=== PATIENT | female | born 1990 | race Caucasian/White ===

== ENCOUNTER 2018-02-11 01:10 | Day surgery (SDC) | payer OTHER ==
[~2018-02-11 01:10] MED LIST: HYDACE5 PO; IBUP400 PO; PARO30; TRAZ50
[2018-02-11] MEDS ORDERED: ONDA4ODT (14:20)
== END 2018-02-11 16:13 | disposition home or self-care (01) ==
LOC: ATC 01:10
DX: R11.2 Nausea with vomiting, unspecified (principal); Z36.89 Encounter for other specified antenatal screening
CPT/HCPCS: 96360; 96361; J7120

== ENCOUNTER 2018-03-04 07:07 | Day surgery (SDC) | payer OTHER ==
[~2018-03-04 07:07] MED LIST changes: +ONDA4ODT
== END 2018-03-04 22:51 | disposition home or self-care (01) ==
LOC: ATC 07:07
DX: R11.2 Nausea with vomiting, unspecified (principal); Z36.89 Encounter for other specified antenatal screening
CPT/HCPCS: J2405; J7120

== ENCOUNTER 2018-03-06 00:17 | Day surgery (SDC) | payer OTHER | END 2018-03-06 11:10 | disposition home or self-care (01) | LOC: ATC 00:17 | DX: R11.2 Nausea with vomiting, unspecified (principal); Z36.89 Encounter for other specified antenatal screening | CPT/HCPCS: 96361; 96374; J2405; J7120 ==

== ENCOUNTER 2018-07-09 10:27 | Emergency (ER) | payer OTHER ==
[~2018-07-09] VITALS: Ht 165.1 cm; Wt 85.3 kg
[2018-07-09] MEDS ORDERED: Verotin-Gr Cap1 EACH PO (11:17)
[2018-07-09] MEDS ORDERED: RANI150EL PO (11:17)
== END 2018-07-09 12:11 | disposition home or self-care (01) ==
LOC: ER 10:27
DX: R51 Headache (principal)
CPT/HCPCS: 99282

== ENCOUNTER → 2018-07-21 | Outpatient (CLI) | payer OTHER ==
[~2018-07-21] MED LIST changes: +RANI150EL PO; +Verotin-Gr Cap1 EACH PO
== END | disposition home or self-care (01) ==
LOC: LAB SHORT 17:11 → LAB 17:11
PROVIDERS: Nurse Practitioner Obstetrics & Gynecology
DX: O60.03 Preterm labor without delivery, third trimester (principal)
CPT/HCPCS: 82731

== ENCOUNTER 2018-09-08 05:21 | Inpatient (IN) | payer OTHER ==
[~2018-09-08] VITALS: Ht 165.1 cm; Wt 90.7 kg
[2018-09-08 05:41] LABS: BASOPHILS ABSOLUTE AUTO 0.07 K/mm3 (0.00-0.23); BASOPHILS PERCENT AUTO 1 % (0-2); EOSINOPHILS ABSOLUTE AUTO 0.09 K/mm3 (0.00-0.68); EOSINOPHILS PERCENT AUTO 1 % (0-6); Hematocrit 37.1 % (33.0-51.0); Hemoglobin 12.7 g/dL (11.5-16.0); IMMATURE GRAN ABSOLUTE AUTO 0.12 K/mm3 (0.00-0.10); IMMATURE GRAN PERCENT AUTO 1 % (0-1); LYMPHOCYTES ABSOLUTE AUTO 2.19 K/mm3 (0.84-5.20); LYMPHOCYTES PERCENT AUTO 15 % (21-46); MONOCYTES ABSOLUTE AUTO 0.64 K/mm3 (0.16-1.47); MONOCYTES PERCENT AUTO 4 % (4-13); Mean Corpuscular HGB 33.4 pg (26.0-34.0); Mean Corpuscular HGB Conc 34.2 g/dL (31.5-36.5); Mean Corpuscular Volume 98 fL (80-100); Mean Platelet Volume 11.1 fL (9.1-12.4); NEUTROPHILS ABSOLUTE AUTO 11.85 K/mm3 (1.96-9.15); NEUTROPHILS PERCENT AUTO 79 % (41-73); Platelet Count 195 K/mm3 (150-400); RDW Coefficient Variation 12.6 % (11.7-14.2); RDW Standard Deviation 44.8 fL (35.1-46.3); White Blood Cell Count 14.96 K/mm3 (4.00-11.30)
[2018-09-09 05:39] LABS: BASOPHILS ABSOLUTE AUTO 0.05 K/mm3 (0.00-0.23); BASOPHILS PERCENT AUTO 0 % (0-2); EOSINOPHILS ABSOLUTE AUTO 0.16 K/mm3 (0.00-0.68); EOSINOPHILS PERCENT AUTO 1 % (0-6); Hematocrit 34.2 % (33.0-51.0); Hemoglobin 11.5 g/dL (11.5-16.0); IMMATURE GRAN ABSOLUTE AUTO 0.19 K/mm3 (0.00-0.10); IMMATURE GRAN PERCENT AUTO 1 % (0-1); LYMPHOCYTES ABSOLUTE AUTO 2.21 K/mm3 (0.84-5.20); LYMPHOCYTES PERCENT AUTO 15 % (21-46); MONOCYTES ABSOLUTE AUTO 0.82 K/mm3 (0.16-1.47); MONOCYTES PERCENT AUTO 6 % (4-13); Mean Corpuscular HGB 33.4 pg (26.0-34.0); Mean Corpuscular HGB Conc 33.6 g/dL (31.5-36.5); Mean Corpuscular Volume 99 fL (80-100); Mean Platelet Volume 10.7 fL (9.1-12.4); NEUTROPHILS ABSOLUTE AUTO 11.24 K/mm3 (1.96-9.15); NEUTROPHILS PERCENT AUTO 77 % (41-73); Platelet Count 165 K/mm3 (150-400); RDW Coefficient Variation 12.8 % (11.7-14.2); Red Blood Cell Count 3.44 M/mm3 (3.80-5.20); White Blood Cell Count 14.67 K/mm3 (4.00-11.30)
[2018-09-09] MEDS ORDERED: IBUP800 PO (11:57)
[2018-09-09] MEDS ORDERED: Percocet 5-3251 EACH PO (11:58)
== END 2018-09-09 14:05 | disposition home or self-care (01) | DRG 807 ==
LOC: BC 05:21
PROVIDERS: Nurse Practitioner Obstetrics & Gynecology
PROC: 10E0XZZ Delivery of Products of Conception, External Approach (ICD-10-PCS; principal; 2018-09-08)
PROC: 10907ZC Drainage of Amniotic Fluid, Therapeutic from Products of Conception, Via Natural or Artificial Opening (ICD-10-PCS; 2018-09-08)
PROC: 0HQ9XZZ Repair Perineum Skin, External Approach (ICD-10-PCS; 2018-09-08)
DX: O70.0 First degree perineal laceration during delivery (principal); Z37.0 Single live birth; Z3A.40 40 weeks gestation of pregnancy
CPT/HCPCS: 36415; 85025; 86900; 86901; J1885; J2210; J2590; J3010; J7120

== ENCOUNTER 2024-10-06 11:04 | Day surgery (SDC) | payer OTHER ==
[~2024-10-06] VITALS: Ht 165.1 cm; Wt 68.8 kg
[~2024-10-06 11:04] MED LIST changes: +EPINEPhrine HCl 1 MG / ML 30ML Vial ONE; +IBUP800 PO; +Lactated Ringer's 1,000 ML IV ONE; +Omeprazole20 M1 PO; +Percocet 5-3251 EACH PO
[2024-10-06] MEDS ORDERED: EUTHYROX75 MC1 PO (11:27)
[2024-10-06] MEDS ORDERED: TRAZ50 PO (11:28)
[2024-10-06] MEDS ORDERED: TESTOSTERONE CREAM (11:29)
[2024-10-06] MEDS ORDERED: IRON (11:30)
[2024-10-06] MEDS ORDERED: Lactated Ringer's 1,000 ML IV ONE ×2 (11:33)
[2024-10-06] MEDS ORDERED: Lidocaine 2%-Epineph 1:200000 20 ML SDV INJ ONE ×2 (12:06)
[2024-10-06] MEDS ORDERED: Midazolam HCl 1MG / ML 2ML Vial ONE (12:09)
[2024-10-06] MEDS ORDERED: FentaNYL Citrate 50 MCG/ML 2 ML Injection ONE (12:09)
[2024-10-06] MEDS ORDERED: propofoL 20 ML IV ONE ×2 (12:09→13:48)
[2024-10-06] MEDS ORDERED: Dexamethasone Sod Phos 10 MG/ML 1ML VIAL ONE (12:33)
[2024-10-06] MEDS ORDERED: Ondansetron HCl 2 MG / ML 2ML Vial ONE (12:33)
[2024-10-06] MEDS ORDERED: Rocuronium Bromide 10 MG/ML 5ML Injection IV ONE (12:33)
[2024-10-06] MEDS ORDERED: Phenylephrine HCl 100 MCG/ML-NS 10MLSYR (1MG/10ML) ONE (12:33)
[2024-10-06] MEDS ORDERED: Ketorolac Tromethamine 30mg Vial ONE (12:33)
--- NOTE | 2024-10-06 12:37 | NUR ---
10/06/24 1237 Agatha Torres LIDOCAINE 4% MIXED 1:1 WITH EPI (1MG/ML) TO MAKE SOLUTION FOR SOAKING PLEDGETTES FOR NASAL PACKING.
[2024-10-06] MEDS ORDERED: Lidocaine HCl 4% 5 ML SDA ONE (12:43)
[2024-10-06] MEDS ORDERED: EPINEPhrine HCl 1 MG/ML 1ML Amp XX ONE ×2 (12:46)
[2024-10-06] MEDS ORDERED: Sugammadex Sodium 200 MG/2ML SDV (100 MG/ML) ONE (13:10)
[2024-10-06 14:40] VITALS: BP 124/74
== END 2024-10-06 15:10 | disposition home or self-care (01) ==
LOC: ORSCSDS 11:04
PROVIDERS: Otolaryngology
PROC: 0JB40ZX Excision of Right Neck Subcutaneous Tissue and Fascia, Open Approach, Diagnostic (ICD-10-PCS; principal; 2024-10-06 12:30)
PROC: 097F8ZZ Dilation of Right Eustachian Tube, Via Natural or Artificial Opening Endoscopic (ICD-10-PCS; principal; 2024-10-06 12:30)
PROC: 09SM0ZZ Reposition Nasal Septum, Open Approach (ICD-10-PCS; principal; 2024-10-06 12:30)
PROC: 097G8ZZ Dilation of Left Eustachian Tube, Via Natural or Artificial Opening Endoscopic (ICD-10-PCS; principal; 2024-10-06 12:30)
DX: J34.2 Deviated nasal septum (principal); J34.3 Hypertrophy of nasal turbinates; H69.93 Unspecified Eustachian tube disorder, bilateral; L72.8 Other follicular cysts of the skin and subcutaneous tissue; E03.9 Hypothyroidism, unspecified; Z79.899 Other long term (current) drug therapy
CPT/HCPCS: 88304; C1726; J0171; J1100; J1885; J2003; J2250; J2371; J2405; J2704; J3010; J7120